=== PATIENT | male | born 1945 | race Hispanic/Latino ===

== ENCOUNTER 2018-01-23 08:38 | Emergency (ER) | payer MEDICARE ==
[2018-01-23 08:49] VITALS: BP 126/71
--- NOTE | 2018-01-23 09:28 | XRay Report ---
LEFT HAND RADIOGRAPHS INDICATION: Laceration to left hand. COMPARISON: None similar at this institution. 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 Intact overall articulation. No radiopaque foreign body, though mild soft tissue heterogeneity may overlie the metacarpal heads dorsally. CONCLUSION: Possible left hand dorsal soft tissue injury. No acute bony abnormality with osteoarthritic changes noted, as described. Please correlate. Thank you for the opportunity to participate in this patient's care.
--- NOTE | 2018-01-23 11:11 | Emergency Department Report ---
ED Laceration HPI - HPI Chief Complaint: Wound/Laceration Stated Complaint: LEFT HAND LACERATION Time Seen by Provider: 01/23/18 11:08 Occurred When: Today Location: Upper Extremity (left hand) Severity: moderate Tetanus Status: Not up to Date Laceration Symptoms: Yes Pain, No Foreign Body Sensation, No Numbness, No Weakness Other History: This is a 72-year-old male who presents with laceration to left palm that occurred this morning around 8:30. Patient reports he was using an electric tool grinder operator external and was wearing a cotton glove that got caught in the tool grinder operator external. He cut the palm of his left hand. He is currently taking Xarelto and could not get the wound to stop bleeding. He cleaned the area with water and came in for evaluation. There is moderate amount of swelling to wound with bleeding. Denies paresthesia, limits her range of motion , and ecchymosis. ED Review of Systems ROS: Stated complaint: LEFT HAND LACERATION Other details as noted in HPI Constitutional: denies: chills, fever Respiratory: denies: cough, shortness of breath, wheezing Cardiovascular: denies: chest pain, palpitations Gastrointestinal: denies: abdominal pain, nausea, diarrhea Musculoskeletal: denies: back pain, joint swelling, arthralgia Skin: lesions (laceration to left palm). denies: rash Neurological: denies: headache, weakness, paresthesias Psychiatric: denies: anxiety, depression ED Past Medical Hx - Past Medical History Previous Medical History?: Yes Additional medical history: "blood clots" pt reports taking xarelto - Surgical History Past Surgical History?: Yes Additional Surgical History: left knee replacement - Social History Smoking Status: Never Smoker Substance Use Type: None - Medications Home Medications: Home Medications Medication Instructions Recorded Confirmed Last Taken Type Sulfamethoxazole/Trimethoprim 1 each PO BID #14 tablet 01/23/18 Unknown Rx [Bactrim DS TAB] Laceration Physical Exam - Exam General: Vital signs noted. No distress. Alert and acting appropriately. Wound Length (cm): 4 Laceration Location: Upper Extremity (left palm) Full Body Front + Back: 1 - 4 cm laceration into muscle of left lateral palm, tendon exposed and intact , FROM, mild swelling surrounding tissue, moderate bleeding Laceration Exam: Yes Exposed Tendon, Vessel, or Nerve, Yes Normal Distal CMS, No Foreign Body, No Tendon Injury ED Course Vital Signs 01/23/18 08:44 Temperature 98.6 F Pulse Rate 80 Respiratory 18 Rate Blood Pressure 126/71 O2 Sat by Pulse 94 Oximetry - Laceration /Wound Repair Left Lateral Palm Hand Wound Location: upper extremity (left lateral palm) Wound Length (cm): 4 Wound's Depth, Shape: into muscle, irregular Wound Explored: no foreign body removed Irrigated w/ Saline (ccs): 8 Betadine Prep?: Yes Anesthesia: 1% Lidocaine (2% lidocaine without epi) Volume Anesthetic (ccs): 2 Wound Repaired With: sutures Suture Size/Type: 5:0 Number of Sutures: 12 Layer Closure?: No Sterile Dressing Applied?: Yes ED Medical Decision Making - Radiology Data Radiology results: report reviewed LEFT HAND RADIOGRAPHS INDICATION: Laceration to left hand. COMPARISON: None similar at this institution. 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 Intact overall articulation. No radiopaque foreign body, though mild soft tissue heterogeneity may overlie the metacarpal heads dorsally. CONCLUSION: Possible left hand dorsal soft tissue injury. No acute bony abnormality with osteoarthritic changes noted, as described. Please correlate. - Medical Decision Making This is a 72 y.o. male presents with left palm laceration from this morning around 0830. Patient examined by me. Vitals are normal and patient is in no acute distress. X-ray of left hand obtained and read by radiologist. Possible left hand dorsal soft tissue injury. No acute bony abnormality with osteoarthritic changes noted, as described. Please correlate. Physical examination is susceptible of cellulites. Laceration repair with sutures review suture note. Discharged home for outpatient treatment with bactrim. Discussed ER care plan with patient. Patient agreed with plan. F/U with PCP. Critical care attestation.: If time is entered above; I have spent that time in minutes in the direct care of this critically ill patient, excluding procedure time. ED Disposition Clinical Impression: Laceration of hand Qualifiers: Encounter type: initial encounter Foreign body presence: without foreign body Laterality: left Qualified Code(s): S61.412A - Laceration without foreign body of left hand, initial encounter Disposition: TO HOME OR SELFCARE Is pt being admited?: No Does the pt Need Aspirin: No Condition: Stable Instructions: Suture Care (ED), Laceration (ED) Additional Instructions: Take antibiotics as prescribed for the full course. Keep wound dry and clean for 48 hours. Avoid putting to much tension on wound site. Prop arm up on pillows to decrease swelling. Follow up with Primary Care Provider in 2-3 days. Have sutures removed in 7 days by primary care provider or in ER. Return to ER if red, swollen, foul discharge, or fever. Prescriptions: Sulfamethoxazole/Trimethoprim [Bactrim DS TAB] 1 each PO BID #14 tablet Referrals: [facility] [Provider Group] - 3-5 Days [facility] [Provider Group] - 3-5 Days EDITH TOUSSAINT MD [Staff Physician] - 3-5 Days Time of Disposition: 13:05 Print Language: LITHUANIAN
[2018-01-23] MEDS ORDERED: ULTRAM PO ONE (11:47)
[2018-01-23] MEDS ORDERED: XYLOCAINE 2% INFILTRATI ONE (11:47)
[2018-01-23] MEDS ORDERED: BOOSTRIX IM ONE (11:49)
== END 2018-01-23 13:29 | disposition home or self-care (01) ==
LOC: ED 08:38
DX: S61.412A Laceration without foreign body of left hand, initial encounter (principal); Z96.652 Presence of left artificial knee joint; W31.89XA Contact with other specified machinery, initial encounter; Y93.89 Activity, other specified; Y99.8 Other external cause status; Y92.89 Other specified places as the place of occurrence of the external cause
CPT/HCPCS: 90471; 90715